=== PATIENT | male | born 1960 | race Caucasian/White ===

== ENCOUNTER 2025-04-08 09:58 | Emergency (ER) | payer OTHER ==
[2025-04-08] MEDS ORDERED: Iopamidol 300 61% 100 ML VIAL FS ONE (10:27)
[2025-04-08] MEDS ORDERED: Nitroglycerin 0.4 MG TAB 1 EACH ONE (10:40)
[2025-04-08 10:54] LABS: #Basophils 0.05 10x3/uL (0.0-0.2); #Eosinophils 0.22 10x3/uL (0.0-0.5); #Monocytes 0.81 10x3/uL (0.0-1.1); #Neutrophils 4.67 10x3/uL (1.5-8.4); %Basophils 0.7 % (0.0-2.0); %Eosinophils 3.1 % (0.0-6.0); %Lymphocytes 19.2 % (18.0-47.0); %Monocytes 11.3 % (0.0-10.0); %Neutrophils 65.4 % (40.0-75.0); Hematocrit 43.1 % (38.8-50.0); Hemoglobin 13.6 g/dL (13.5-17.5); Mean Corpuscular Hemoglobin 30.1 pg (27.0-33.0); Mean Corpuscular Volume 95.4 fL (81.2-95.1); Platelet Count 102 10x3/uL (150-450); Red Blood Cell (RBC) Count 4.52 10x6/uL (4.32-5.72); White Blood Cell (WBC) Count 7.14 10x3/uL (3.5-10.5)
[2025-04-08 11:01] LABS: ALT (SGPT) 10 U/L (Less than 45); AST (SGOT) 24 U/L (11-34); Albumin 3.8 g/dL (3.1-4.5); Alkaline Phosphatase 70 U/L (40-110); Anion Gap 12 mmol/L (10-20); BUN (Urea Nitrogen) 23 mg/dL (8.4-25.7); Bilirubin, Total 0.5 mg/dL (0.3-1.2); Calc. Creatinine Clearance 0 mL/min (70-130); Calcium 8.7 mg/dL (7.8-10.44); Carbon Dioxide 29 mmol/L (23-31); Chloride 104 mmol/L (98-107); Globulin 3.4 g/dL (2.4-3.5); Glucose 73 mg/dL (80-115); Lipase 15 U/L (8-78); Potassium 4.6 mmol/L (3.5-5.1); Sodium 140 mmol/L (136-145)
[2025-04-08 11:07] LABS: Troponin I Less than 0.010 ng/mL (< 0.028)
[2025-04-08 14:09] LABS: Troponin I Less than 0.010 ng/mL (< 0.028)
[2025-04-08] MEDS ORDERED: Acetaminophen 500 MG TAB ONE (15:20)
== END 2025-04-08 15:58 ==
LOC: CSHERS 09:58 → EEVIPCON 09:58 → CSHERS 15:58
DX: R07.9 Chest pain, unspecified (principal); E16.2 Hypoglycemia, unspecified; I12.9 Hypertensive chronic kidney disease with stage 1 through stage 4 chronic kidney disease, or unspecified chronic kidney disease; N18.9 Chronic kidney disease, unspecified; Z55.6 Problems related to health literacy
CPT/HCPCS: 36415; 36416; 71045; 71275; 80053; 83690; 83880; 84484; 85025; 85379; 93005; 94760; Q9967